=== PATIENT | male | born 1990 | race Caucasian/White ===

== ENCOUNTER 2024-03-08 12:55 | Emergency (ER) | payer OTHER, SELFPAY ==
[2024-03-08 13:08] VITALS: BP 169/96; PULSE 69; RESP 16; TEMP 36.3; O2SAT 99; BMI 22.3
[2024-03-08 13:28] VITALS: PULSE 74; O2SAT 100
--- NOTE | 2024-03-08 13:28 | ED_ITS ---
HPI - Psych General Chief Complaint: Psychiatric Symptoms Stated Complaint: Insomnia, Audio Hallucinations, Poss Withdrawal Time Seen by Provider: 03/08/24 13:16 History of Present Illness HPI Narrative: Patient 34-year-old healthy male presenting today with hallucinations and inability to sleep. 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 he had been up [place] 24 hours at that time and he did not sleep at all last night. He also reports that he took 2 kpfh-ibw-rytniuu male enhancement drugs. Afterwards he did feel like his heart was pounding quite a bit. He also reports he has been drinking at least 10 beers a day for the last 1 month. He has not had a drink for the last 72 hours. He denies any shaking or history of alcohol withdrawal. He does report that he is hearing music that is not there. He denies any suicidal homicidal ideations. He just does wanting to get some sleep. Related Data Previous Rx's Medication Instructions Recorded lorazepam 1 mg tablet (Ativan) 1 mg PO BEDTIME PRN sleep #2 tabs 03/08/24 Allergies Allergy/AdvReac Type Severity Reaction Status Date / Time No Known Drug Allergies Allergy Verified 03/08/24 13:08 Exam Initial Vital Signs Initial Vital Signs: Vital Signs Temperature 97.4 F L 03/08/24 13:08 Pulse Rate 69 03/08/24 13:08 Respiratory Rate 16 03/08/24 13:08 Blood Pressure 169/96 H 03/08/24 13:08 Pulse Oximetry 99 03/08/24 13:08 Oxygen Delivery Method Room Air 03/08/24 13:08 GENERAL: Well-appearing 34-year-old male and in no acute distress. HEENT: Head atraumatic,EOMI, pupils reactive, face symmetric, moist mucous membranes CARDIOVASCULAR: Regular rate and rhythm without murmurs, rubs or gallops. RESPIRATORY: Breath sounds equal bilaterally, no wheezes rales or rhonchi. ABDOMEN: Soft, nontender. Normoactive bowel sounds all 4 quadrants. No guarding or rebound. EXTREMITIES: Normal range of motion, no clubbing or edema. Neurovascularly intact NEUROLOGICAL: Alert and oriented x4.Normal gait and speech. Cranial nerves II through XII grossly intact. No tremors SKIN: Warm, dry, no laceration, no petechiae, no rashes or lesions. Course Orders Ordered: ED Orders 03/08/24 13:10 Urinalysis and Microscopic Stat Urine Drug Screen, Rapid Stat 03/08/24 13:23 Consult to REGULATORY AFFAIRS STRATEGY SPECIALIST - Dentistry Teacher Stat 03/08/24 13:33 Complete Blood Count AUTO DIFF Stat Comprehensive Metabolic Panel Stat Ethanol (ETOH) Stat Lipase Stat Discontinued Medications Sodium Chloride (Normal Saline 0.9%) 1,000 mls @ 1,000 mls/hr IV BOLUS ONE Stop: 03/08/24 14:13 Last Infusion: 03/08/24 14:55 Dose: Infused Documented By: Admin: 03/08/24 13:53 Dose: 1,000 mls/hr Documented By: BS Lorazepam (Lorazepam 2 Mg/Ml Inj) 1 mg IV NOW ONE Stop: 03/08/24 13:47 Last Admin: 03/08/24 13:53 Dose: 1 mg Documented By: BS Vital Signs Vital signs: Vital Signs - 8 hr 03/08/24 13:08 03/08/24 13:28 03/08/24 13:30 Temperature 97.4 F L Pulse Rate 69 74 63 Respiratory Rate 16 24 Blood Pressure 169/96 H Pulse Oximetry 99 100 99 Oxygen Delivery Method Room Air 03/08/24 13:31 03/08/24 13:31 03/08/24 14:00 Temperature Pulse Rate 60 Respiratory Rate 23 Blood Pressure 136/79 140/76 Pulse Oximetry 99 Oxygen Delivery Method 03/08/24 14:00 03/08/24 14:30 03/08/24 14:30 Temperature Pulse Rate 64 76 Respiratory Rate 22 22 Blood Pressure 152/93 H Pulse Oximetry 98 97 Oxygen Delivery Method Room Air MDM - Psych Lab Data 03/08/24 13:33 03/08/24 13:33 Labs: Lab Results 03/08/24 03/08/24 03/08/24 Range/Units 13:10 13:10 13:33 WBC 4.3 L (4.5-11.0) X10^3/uL RBC 4.56 (4.5-5.9) X10^6/uL Hgb 14.4 (13.5-17.5) g/dL Hct 41.7 (41-53) % MCV 91.4 (80-100) fL MCH 31.6 (26-34) PG MCHC 34.5 (30-36) % RDW 13.0 (11.6-14.8) % Plt Count 227 (150-400) X10^3/uL Neut % (Auto) 63.6 (50-75) % Lymph % (Auto) 25.4 (25-40) % [place] % (Auto) 9.3 (3-14) % Eos % (Auto) 1.1 L (2-4) % Baso % (Auto) 0.6 (0-2) % Neut # (Auto) 2800 (7401-8966) /uL Lymph # (Auto) 1100 (3752-1415) /uL [place] # (Auto) 400 (0-900) /uL Eos # (Auto) 0 (0-450) /uL Baso # (Auto) 0 (0-100) /uL Sodium 135 L (137-145) mmol/L Potassium 3.5 (3.4-5.1) mmol/L Chloride 103 (98-107) mmol/L Carbon Dioxide 21 L (22-32) mmol/L BUN 8 L (9-20) mg/dL Creatinine 0.73 (0.66-1.25) mg/dL Estimated GFR > 60 (>60) mL/min BUN/Creatinine Ratio 11.0 (6-22) Glucose 115 H (70-100) mg/dL Calcium 9.5 (8.4-10.2) mg/dL Total Bilirubin 0.9 (0.2-1.3) mg/dL AST 58 (17-59) IU/L ALT 46 (<50) IU/L Alkaline Phosphatase 55 (38-126) U/L Total Protein 7.7 (6.3-8.2) g/dL Albumin 4.8 (3.5-5.0) g/dL Globulin 2.9 (1.7-4.1) g/dL Albumin/Globulin Ratio 1.7 (1.0-2.8) Lipase 179 (23-300) U/L Urine Color Yellow Urine Appearance Clear Urine pH 7.0 Normal (4.5-8.0) Ur Specific [place] <=1.005 (1.000-1.035) Urine Protein Negative (Negative) Urine Glucose (UA) Negative (Negative) g/dL Urine Ketones Negative (NEGATIVE) Urine Occult Blood Negative (Negative) Urine Nitrate Negative (Negative) Urine Bilirubin Negative (NEGATIVE) Urine Urobilinogen 0.2 (0.2) E.U./dL Ur Leukocyte Esterase Negative (NEGATIVE) Urine RBC 0-1/hpf (0-5/HPF) Urine WBC None seen (0-5/HPF) Ur Squamous Epith Cells None seen (0-5/HPF) Urine Bacteria None seen (None) Ur Culture Indicated? Cult not indicated Vol Urine Centrifuged 10ml (spun) U Opiates 300ng/mL cut Negative (Negative) Ur Oxycodone Screen Negative (Negative) Urine Methadone Screen Negative (Negative) Ur Barbiturates Screen Negative (Negative) U Tricyclic Antidepress Negative (Negative) Ur Phencyclidine Scrn Negative (Negative) Ur Amphetamines Screen Negative (Negative) U Methamphetamines Scrn Negative (Negative) Ur MDMA Scrn (Ecstasy) Negative (Negative) U Benzodiazepines Scrn Negative (Negative) Urine Cocaine Screen Negative (Negative) U Marijuana (THC) Screen Negative (Negative) Urine Specific [place] Normal (Normal) Ethyl Alcohol < 10 ( - 10) mg/dL Ur Creatinine Normal (Normal) MDM Narrative Medical decision making narrative: [facility] CC: Hallucinations insomnia Complicating co-morbidities: Recent binge drinking Data collected from: in room as well Medical records reviewed: No prior records Differential considered: Insomnia alcohol withdrawal psychosis Exam documented above, pertinent findings include: Alert appearing no tremors A&O x4 GCS 15 she was 0 Lab Test results independently reviewed as above. Pertinent findings: CBC no leukocytosis or anemia or thrombocytopenia CMP no significant electrolyte abnormality sodium is 135 no GABBIE creatinine 0.7 glucose 115 Bilirubin liver enzymes lipase within normal limits Urinalysis negative drug screen and tox screen also negative Treatments: IV fluid and 1 mg of Ativan Re-evaluations: Patient feeling significantly better after Ativan. He feels like he could go home and sleep now. He was evaluated by social work as well with sudden him up with outpatient treatment Discussion: Patient 34-year-old male presenting today with insomnia and hallucinations. I suspect combination of insomnia and mild alcohol withdrawal. At this time he has not in severe or significant delirium tremens. He is feeling better after Ativan. Discussed with and him will give him 1-2 tablets to go home with to use extreme cases to go to sleep. He is previously tried melatonin and Benadryl did not work. He understands that he can not drink alcohol while taking this medication. the also understands this Discharge Plan Departure Patient Disposition: Home Clinical Impression: Insomnia Instructions: Insomnia Activity Restrictions/Additional Instructions: *You have been diagnosed with insomnia *What to do: At this time I do think he just needs to go home and sleep and he will start to feel better. Do not drink alcohol while taking Ativan it is an addictive medication therefore you will not be getting many tablets. I do recommend that you try melatonin and Benadryl for mild insomnia *Continue to take medications as directed Ativan 1 mg at night for sleeping *Follow up with your primary care provider in 2-3 days or call [phone] [facility] has given you information for follow-up *Return to ER if you should have increased hallucinations tremors confusion or any new, worsening or concerning symptoms Prescriptions: New lorazepam [Ativan] 1 mg tablet 1 mg PO BEDTIME PRN (Reason: sleep) Qty: 2 0RF Stand Alone Forms: Patient Portal/API
[2024-03-08 13:30] VITALS: PULSE 63; RESP 24; O2SAT 99
[2024-03-08 13:31] VITALS: BP 136/79; PULSE 60; RESP 23; O2SAT 99
[2024-03-08 13:32] LABS: Appearance Urine UA CLEAR; Bilirubin Urine UA NEGATIVE (NEGATIVE); Color Urine UA YELLOW; Glucose Urine UA NEGATIVE (Negative); Ketones Urine UA NEGATIVE (NEGATIVE); Leukocyte Esterase Urine UA NEGATIVE (NEGATIVE); Nitrite Urine UA NEGATIVE (Negative); Occult Blood Urine UA NEGATIVE (Negative); Protein Urine UA NEGATIVE (Negative); Specific Gravity Urine UA <=1.005 (1.000-1.035); Urobilinogen Urine UA 0.2 E.U./dL (0.2)
[2024-03-08 13:41] LABS: Bacteria Urine None Seen; Culture Indicated Urine Cult Not Indicated; RBC Urine 0-1/HPF (0-5/HPF); Squamous Epithelial Cell Urine None Seen (0-5/HPF); Urine Volume 10mL (spun); WBC Urine None Seen (0-5/HPF)
[2024-03-08 13:43] LABS: Add Manual Diff / Slide Review NO; Basophils Absolute Auto 0 /uL (0-100); Basophils Percent Auto 0.6 % (0-2); Eosinophils Absolute Auto 0 /uL (0-450); Eosinophils Percent Auto 1.1 % (2-4); Hematocrit 41.7 % (41-53); Hemoglobin 14.4 g/dL (13.5-17.5); Lymphocytes Absolute Auto 1100 /uL (1100-4500); Lymphocytes Percent Auto 25.4 % (25-40); Mean Corpuscular HGB Conc 34.5 % (30-36); Mean Corpuscular Hemoglobin 31.6 PG (26-34); Mean Corpuscular Volume 91.4 fL (80-100); Monocytes Absolute Auto 400 /uL (0-900); Monocytes Percent Auto 9.3 % (3-14); Neutrophils Absolute Auto 2800 /uL (1500-7000); Neutrophils Percent Auto 63.6 % (50-75); Platelet Count 227 X10^3/uL (150-400); Red Blood Cell Count 4.56 X10^6/uL (4.5-5.9); White Blood Cell Count 4.3 X10^3/uL (4.5-11.0)
[2024-03-08] MEDS: SODIUM CHLORIDE 0.9% 1,000 ML 1000 ML IV (13:53)
[2024-03-08] MEDS: LORazepam 2 MG/ML INJ 1 MG IV (13:53)
[2024-03-08 13:54] LABS: Alanine Aminotransferase 46 IU/L (<50); Albumin 4.8 g/dL (3.5-5.0); Albumin Globulin Ratio 1.7 (1.0-2.8); Alkaline Phosphatase 55 U/L (38-126); Aspartate Aminotransferase 58 IU/L (17-59); Bilirubin Total 0.9 mg/dL (0.2-1.3); Blood Urea Nitrogen 8 mg/dL (9-20); Calcium 9.5 mg/dL (8.4-10.2); Carbon Dioxide 21 mmol/L (22-32); Chloride 103 mmol/L (98-107); Estimated Glomerular Filt Rate > 60 mL/min (>60); Ethanol (ETOH) < 10 mg/dL; Globulin 2.9 g/dL (1.7-4.1); Glucose 115 mg/dL (70-100); HEMOLYSIS < 15 (0-50); Lipase 179 U/L (23-300); Potassium 3.5 mmol/L (3.4-5.1); Sodium 135 mmol/L (137-145); Total Protein 7.7 g/dL (6.3-8.2)
[2024-03-08 14:00] VITALS: BP 140/76; PULSE 64; RESP 22; O2SAT 98
[2024-03-08 14:05] LABS: Ur Creatinine Normal (Normal); Ur Specific Gravity Normal (Normal); Urine pH Normal (Normal)
[2024-03-08 14:06] LABS: UR Morphine/Opiate cutoff 300 Negative (Negative); Urine Amphetamines Negative (Negative); Urine Barbiturates Negative (Negative); Urine Benzodiazepines Negative (Negative); Urine Cocaine Negative (Negative); Urine MDMA Negative (Negative); Urine Methadone Negative (Negative); Urine Methamphetamines Negative (Negative); Urine Oxycodone Negative (Negative); Urine Phencyclidine Negative (Negative); Urine Tetrahydrocannabinol Negative (Negative); Urine Tricyclic Antidepressant Negative (Negative)
[2024-03-08 14:30] VITALS: BP 152/93; PULSE 76; RESP 22; O2SAT 97
--- NOTE | 2024-03-08 15:13 | CM.SWNOTE ---
ED SUPERVISOR TYPE PHOTOGRAPHY Assessment Note: SUPERVISOR TYPE PHOTOGRAPHY - Reconditioning Associate Assessment SUPERVISOR TYPE PHOTOGRAPHY/Reconditioning Associate Assessment Substance Abuse Screening Include Onset, Duration, Intensity Presenting Problem Patient presents to the ED with his spouse with concern for insomnia, auditory hallucinations and possible ETOH withdrawal. 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 Patient reports he has not drank in 72 hours, BAL is <10 at time of presentation. Patient explained he was experiencing some auditory hallucinations and has not slept all night. Patient Strengths Patient is cooperative and communicative. Patient is also supported by their spouse, Ashley, is at bedside. Current Behavioral Health Provider(s) None reported. Include Facility, Provider, Ph. # Family Hx of Behavioral Abuse None reported. Rehab Facilities? ((Date(s), Location(s) None reported. ) History of Withdrawal? Seizures? None reported. 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 Legal Concerns Legal Matters - Outstanding Issues None reported Mental Status Orientation (Person/Place/Time) AOx3 Stated Mood sleepy Affect (Congruent with Mood?) Congruent with mood Thought Content - Specify/Describe Patient denies any visual Obsessions, Delusions, Hallucinations hallucinations. Patient explains he has been experiencing auditory hallucinations, It sounded like my neighbors were playing music at 4 in the morning but my confirmed that it wasn't them. Thought Processes (Izospyf-Wrfkjsoq-Rsed Logical, coherent Rpxgsyou-Shioadef-Gncrdlhqtp- Ctagzoeovpgyme-Yhycqtc-Paffswkrqrlt- Thought Blocking) Speech (Fzodoo-Uocc-Rmbabch-Rapid-Soft- Normal, soft Loud-Pressured) Motor (Faouxg-Atkawyyzh-Yjug-Other) Normal Insight (Zihm-Tfzb-Gdqe/Limited) Good Judgement (Bmur-Bnuj-Msed/Limited) Good Impulse Control (Adequate-Impaired) Adequate Memory (Sxioxrjez-Mkbavj-Ojwnur, Intact Impaired-Intact) Concentration (Intact-Impaired) Intact Attention (Intact-Impaired) Intact Behavior (Appropriate-Inappropriate) Appropriate Additional Comment Patient is calm, cooperative and communicative during assessment. Risk Assessment Suicidal Ideation (Plan) No Homicidal Ideation (Plan) No Intervention Intervention Reviewed chart and team rounds for pt's medical status and needs. SUPERVISOR TYPE PHOTOGRAPHY meets with patient and spouse. Patient reports auditory hallucination, insomnia and precipitating events that could attribute to undiagnosed anxiety/ depression. 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 SUPERVISOR TYPE PHOTOGRAPHY and patient discuss next steps. Patient explains he is agreeable to outpatient [facility]/MH counseling with an agency not -affiliated with the [employer]. SUPERVISOR TYPE PHOTOGRAPHY discussed [facility] who has an office in [place] who also takes patient's insurance, pt agreeable to referral. At this time, it is the opinion of this SUPERVISOR TYPE PHOTOGRAPHY that patient would benefit from outpatient [facility] counseling and is safe to discharge home with spouse. SUPERVISOR TYPE PHOTOGRAPHY informs ED provider, Dr. Stone who indicates agreement. ED SUPERVISOR TYPE PHOTOGRAPHY sent referral via online form to [facility] with pt's contact information to include phone number, spouse phone number and email address. SUPERVISOR TYPE PHOTOGRAPHY provided contact information for [facility] and crisis contacts specific for Veterans to patient and . Plan RA Plan Patient to discharge home with referral/[facility], spouse to transport home. [facility] [place]
== END 2024-03-08 14:55 | disposition home or self-care (01) ==
PROVIDERS: Emergency Provider Emergency Medicine
DX: G47.00 Insomnia, unspecified (principal); R44.0 Auditory hallucinations
CPT/HCPCS: 36415; 80053; 80305; 80320; 81001; 83690; 85025; 96361; 96374; 99284; J2060